=== PATIENT | male | born 1955 | race Hispanic/Latino ===

== ENCOUNTER 2021-07-14 18:11 | Emergency (ER) | payer MEDICARE ==
[2021-07-14 18:19] VITALS: BP 105/55
== END 2021-07-15 04:43 | disposition left against medical advice (07) ==
LOC: ED 18:11
DX: Z00.00 Encounter for general adult medical examination without abnormal findings (principal); Z53.21 Procedure and treatment not carried out due to patient leaving prior to being seen by health care provider; W19.XXXA Unspecified fall, initial encounter; Y93.89 Activity, other specified; Y92.89 Other specified places as the place of occurrence of the external cause; Y99.8 Other external cause status